=== PATIENT | female | born 1955 | race African-American/Black ===

== ENCOUNTER 2017-08-26 11:47 | Emergency (ER) | payer SELFPAY ==
[2017-08-26 11:55] VITALS: BP 154/84; PULSE 95; TEMP 98.4; BMI 31.8
--- NOTE | 2017-08-26 14:00 | PDOC ---
History of Present Illness - General Chief Complaint: Eye Problem Stated Complaint: LT EYE INJURY Time Seen by Provider: 08/26/17 13:42 History Source: Patient Exam Limitations: No Limitations - History of Present Illness Initial Comments: 08/26/17 16:44 My chief complaint: Decreased vision since January 2017 History of present illness: Patient is a 62-year-old female with no significant medical issues here today with her son and's [id number] due to patient having decreased visual acuity sense of January 2017. Patient reports that her vision in her left eye is slightly worse cloudiness of her vision. Patient denies any diplopia. Patient also reports the vision is blurred. Patient reports that she lost her glasses that she wore for close up and January 2017 but she was able to see faraway without them. Patient denies any severe headaches any neurological deficits. She denies any discharge from her eyes or photophobia or tearing. 08/26/17 16:49 Timing/Duration: getting worse (since 01/2017) Severity: severe (loss of vision) Associated Symptoms: reports: denies symptoms Past History - Past Medical History Allergies/Adverse Reactions: Allergies Allergy/AdvReac Type Severity Reaction Status Date / Time No Known Allergies Allergy Verified 08/26/17 11:50 Home Medications: Ambulatory Orders NK [No Known Home Medication] 08/26/17 Other medical history: denies - Immunization History Immunization Up to Date: Yes - Suicide/Smoking/Psychosocial Hx Smoking History: Never smoked Hx Alcohol Use: No Drug/Substance Use Hx: No Review of Systems - Review of Systems Able to Perform ROS?: Yes Constitutional: No: Symptoms Reported HEENTM: Yes: Blurred Vision (b/l), Recent change in vision (since 01/2017). No: Eye Pain, Tearing, Double Vision Respiratory: No: Symptoms reported Cardiac (ROS): No: Symptoms Reported ABD/GI: No: Symptoms Reported : No: Symptoms Reported Musculoskeletal: No: Symptoms Reported Integumentary: No: Symptoms Reported Neurological: No: Symptoms reported *Physical Exam - Vital Signs Last Vital Signs Temp Pulse Resp BP Pulse Ox 98.4 F 95 H 20 154/84 100 08/26/17 11:51 08/26/17 11:51 08/26/17 11:51 08/26/17 11:51 08/26/17 11:51 - Physical Exam General Appearance: Yes: Appropriately Dressed HEENT: positive: EOMI, ESTRELLITA, Other (opaque film noted over pupil left eye, unable to appreciate a red reflex, no dendritic lesions noted ) Neck: negative: Lymphadenopathy (R), Lymphadenopathy (L) Respiratory/Chest: positive: Lungs Clear, Normal Breath Sounds. negative: Chest Tender, Respiratory Distress Cardiovascular: positive: Regular Rhythm, Regular Rate, S1, S2 Integumentary: positive: Normal Color Neurologic: positive: breaker machine tender II-XII NML intact, Fully Oriented, Alert, Normal Response, Motor Strength 5/5, Respond to painful stimul, Responsive. negative: Numbness, Sensory Deficit Medical Decision Making - Medical Decision Making 08/26/17 16:47 Patient is a 62-year-old female here today with her son and's [id number] due to patient having decreased visual acuity sense of January 2017. Patient reports that her vision in her left eye is slightly worse cloudiness of her vision. Patient denies any diplopia. Patient also reports the vision is blurred. Patient reports that she lost her glasses that she wore for close up and January 2017 but she was able to see faraway without them. Patient denies any severe headaches any neurological deficits> She denies any discharge from her eyes or photophobia or tearing. Decreased visual acuity Plan: Snellen both eyes, right and left eye greater than 20/200 will send to opthomology now Dr. De for further eval today unable to do slit lamp exam (not working) 08/26/17 16:51 08/26/17 16:52 *DC/Admit/Observation/Transfer Diagnosis at time of Disposition: Visual acuity reduced - Discharge Dispostion Disposition: HOME Condition at time of disposition: Stable - Referrals Referrals: Tanner De MD [Staff Physician] - - Patient Instructions Additional Instructions: GO TO OPTHOMOLOGIST DR. DE AT [address], [place] [address]LO[address] You may also go to [facility] for a COMPLETE physical exam as soon as possible [phone] Patient and son and daughter in law voiced understanding of discharge instructions and all questions were answered
== END 2017-08-26 14:13 | disposition home or self-care (01) ==
LOC: JERFT 11:47
DX: H53.9 Unspecified visual disturbance (principal)
CPT/HCPCS: 99281-25